=== PATIENT | female | born 1970 | race Caucasian/White ===

== ENCOUNTER 2018-04-12 14:02 | Emergency (ER) | payer BC ==
--- NOTE | 2018-04-12 14:07 | ED Physician Documentation ---
General Adult - HISTORIAN Historian: patient - HPI Stated Complaint: "I just fell blah" Chief Complaint: General Adult Onset: days ago (1) Timing: still present Severity: mild Further Comments: yes (She reports that she has some ear popping. She denies any fever. Feels on and off nausea. No vomiting. She has no rash) Last known Well Code/Unknown Code: Unknown - ROS CONST: no problems CVS/RESP: denies: shortness of breath, cough GI/: nausea. denies: vomiting MS/SKIN/LYMPH: denies: rash NEURO/PSYCH: dizziness. denies: headache, fainting - PAST HX Past History: none Other History: none Surgeries/Procedures: none Immunizations: UTD Allergies/Adverse Reactions: Allergies Allergy/AdvReac Type Severity Reaction Status Date / Time penicillin G Allergy Verified 06/27/16 16:42 Home Medications: Ambulatory Orders Medication Instructions Recorded Cephalexin [Keflex] 500 mg PO TID #21 capsule 06/24/16 - SOCIAL HX Smoking History: non-smoker Alcohol Use: none Drug Use: none - FAMILY HX Family History: No - VITAL SIGNS Vital Signs: Vital Signs Temp Pulse Resp BP Pulse Ox 132/68 06/27/16 17:36 - REVIEWED ASSESSMENTS Nursing Assessment Reviewed: Yes Vitals Reviewed: Yes General Adult Physical Exam - PHYSICAL EXAM GENERAL APPEARANCE: no distress EENT: eye inspection normal, ENT inspection normal, pharynx normal, no signs of dehydration, ALEXA, TM's nml NECK: normal inspection RESPIRATORY: no resp distress, chest non-tender, breath sounds normal CVS: reg rate & rhythm, heart sounds normal, equal pulses, no murmur ABDOMEN: soft, normal bowel sounds, no distension, non-tender SKIN: warm/dry EXTREMITIES: non-tender, normal range of motion, no evidence of injury, no edema NEURO: oriented X3 Discharge Clincal Impression: Nausea Referrals: Ange Farris MD [STAFF PHYSICIAN] - 2 Days Comments: 1. Increase fluids 2. OTC allergy med 3. Change position slowly 4. See PCP in 2-4 days if no improvement 5. Return to ER for any concerns Condition: Stable Disposition: 01 HOME, SELF-CARE Decision to Admit: NO Date of Decison to Admit: 04/12/18 Decision Time: 14:20
[2018-04-12 14:24] VITALS: BP 143/67
== END 2018-04-12 14:25 | disposition home or self-care (01) ==
LOC: ED 14:02
DX: R11.0 Nausea (principal)

== ENCOUNTER 2018-08-15 13:35 | Emergency (ER) | payer BC ==
--- NOTE | 2018-08-15 13:45 | ED Physician Documentation ---
Lower Extremity Problem - HISTORIAN Historian: patient - HPI Stated Complaint: left knee pain Chief Complaint: Lower Extremity Problem Additional Information: Patient presents to ED with left knee pain. Patient states she was shoveling snow yesterday when she felt a pop in her knee while doing a twisting motion. Since that time she states the knee has been painful. She has not taking anything for the pain nor applied ice/heat. Location of Injury: L knee Onset: days ago (1) Timing: still present Duration: constant Where: home Severity: mild Quality: pain, tenderness Exacerbated By: movement Relieved By: rest Associated Symptoms: denies: chest pain, shortness of breath, rapid heart rate - ROS CONST: no problems MS/SKIN/LYMPH: none CVS/RESP: none GI/: denies: vomiting, nausea NERUO/PSYCH: denies: headache - PAST HX Past History: none PE Risk Factors: none Surgeries/Procedures: none Allergies/Adverse Reactions: Allergies Allergy/AdvReac Type Severity Reaction Status Date / Time penicillin G Allergy Verified 08/15/18 13:57 Home Medications: Ambulatory Orders Medication Instructions Recorded NK 04/12/18 - SOCIAL HX Smoking History: non-smoker Alcohol Use: none Drug Use: none - FAMILY HX Family History: none - VITAL SIGNS Vital Signs: Vital Signs Temp Pulse Resp BP Pulse Ox 98.1 F 84 16 148/88 99 08/15/18 13:46 08/15/18 13:46 08/15/18 13:46 08/15/18 13:46 08/15/18 13:46 - REVIEWED ASSESSMENTS Nursing Assessment Reviewed: Yes Vitals Reviewed: Yes ED Results Lab/Radiology - Radiology Radiology Impressions: Left knee 3 views Date of Exam: August 15, 2018. History: LEFT KNEE PAIN AFTER SLIPPING IN SNOW YESTERDAY AND HEARING A POP. NO PREVIOUS INJURIES OR SURGERIES. PATIENT SHIELDED FOR EXAM. (Hx) / ITS.REASON left knee pain (DICOM Hx) / ITS.REASON left knee pain (Pt comments) Findings: No acute fracture or dislocation is identified. There is diffuse soft tissue swelling. The patella is in appropriate relationship with the distal femur. The proximal left tibia and fibula are intact. Impression: No acute osseous abnormality. Electronically signed on Aug 15, 2018 2:16:18 PM CONSTRUCTION PERSON by: Fredo Madden - Orders Orders: ED Orders Category Date Time Status KNEE 3 VIEWS [RAD] Stat Exams 08/15/18 Taken Lower Extremity Problem - EXAM General Appearance: no distress Hips: bilateral hip: non-tender, normal range of motion Legs: bilateral: non-tender, normal range of motion Knees: left: normal range of motion, no evidence of injury, soft tissue tenderness Ankle: left: normal inspection, normal range of motion Foot: left foot: non-tender, normal inspection Neuro/Tendon: normal sensation, normal motor functions, normal tendon functions EENT: ALEXA RESPIRATORY: chest non-tender, breath sounds normal CVS: reg rate & rhythm, heart sounds normal JOINT: joints nml, Nml gait/weight bearing VASCULAR: no vascular compromise, pulses full/equal NEURO/PSYCH: oriented X3, motor nml SKIN: warm/dry BACK: normal inspection Discharge Clincal Impression: Strain of left knee Qualifiers: Encounter type: initial encounter Qualified Code(s): S86.912A - Strain of unspecified muscle(s) and tendon(s) at lower leg level, left leg, initial encounter Referrals: Primary Doctor,No [Primary Care Provider] - 2 Days Additional Instructions: 1. Tylenol and/or Ibuprofen as needed for pain. These medications may be taken together at the same time for better pain control. 2. Apply ice to affected area as needed for swelling/pain 3. Keep left leg elevated when resting 4. Follow up with PCP within 1 week 5. Return to ED for new or worsening symptoms. Condition: Stable Disposition: HOME, SELF-CARE Decision to Admit: NO Date of Decison to Admit: 08/15/18 Decision Time: 14:13
[2018-08-15 13:55] VITALS: BP 148/88
--- NOTE | 2018-08-15 15:18 | Diagnostic Imaging Report ---
YANY VALDEZ [facility] [address] [facility] [address] [place], [place]. [address] Report Submission Date: Aug 15, 2018 2:16:[address] [address] [employer] Patient Study Name: SILVANO MELGAR Date: Aug 15, 2018 1:46:[address] [employer] Modality Type: DX Gender: F Description: LOWER EXTREMITY : 70 Institution: [facility] Physician: YANY VALDEZ Left knee 3 views Date of Exam: August 15, 2018. History: LEFT KNEE PAIN AFTER SLIPPING IN SNOW YESTERDAY AND HEARING A POP. NO PREVIOUS INJURIES OR SURGERIES. PATIENT SHIELDED FOR EXAM. (Hx) / ITS.REASON left knee pain (DICOM Hx) / ITS.REASON left knee pain (Pt comments) Findings: No acute fracture or dislocation is identified. There is diffuse soft tissue swelling. The patella is in appropriate relationship with the distal femur. The proximal left tibia and fibula are intact. Impression: No acute osseous abnormality. Electronically signed on Aug 15, 2018 2:16:18 [address] [employer] by: Fredo HATCH
== END 2018-08-15 14:20 | disposition home or self-care (01) ==
LOC: ED 13:35
DX: S86.912A Strain of unspecified muscle(s) and tendon(s) at lower leg level, left leg, initial encounter (principal); X58.XXXA Exposure to other specified factors, initial encounter; Y93.H1 Activity, digging, shoveling and raking; Y92.009 Unspecified place in unspecified non-institutional (private) residence as the place of occurrence of the external cause
CPT/HCPCS: 73562; 99282; 99283

== ENCOUNTER 2019-01-29 21:40 | Emergency (ER) | payer BC ==
[2019-01-29] MEDS ORDERED: methylPREDNISolone SOD SUCC 125 MG/2 ML VIAL IM ONE (22:09)
--- NOTE | 2019-01-29 22:14 | ED Physician Documentation ---
Upper Extremity Problem - HISTORIAN Historian: patient - HPI Chief Complaint: Upper Extremity Problem (Right Hand) Additional Information: Patient is a 48-year-old female who presents to the ER with c/o right hand swelling. Patient states that she had shoulder surgery on 01/11/19 and thinks that she is having a reaction to the Tramadol. Hand looks like she has a beginning cellulitis with mild swelling and redness. Patient is adamant that it is an allergic reaction because she googled her symptoms. Patient has no other symptoms of a reaction. She is very argumentive. Finally asked why she was here if it was just a "reaction" because treatment is "benadryl"- she stated that google said to see a doctor. I once again explained that it was not a reaction and a beginning cellulitis. Patient wants to be treated for reaction. Location: R hand Onset: days ago (2) Timing: still present, better Duration: intermittent episodes Recent Injury: No (surgery on 01/11/19) Where: home Severity: mild Associated Symptoms: denies: fever, chills, shortness of breath Exacerbated By: nothing Relieved By: nothing - ROS CONST: no problems EYES/ENT: none CVS/RESP: none GI/: none NEURO/PSYCH: denies: headache - PAST HX Past History: none Other History: none Surgeries/Procedures: other (shoulder) Immunizations: UTD Allergies/Adverse Reactions: Allergies Allergy/AdvReac Type Severity Reaction Status Date / Time penicillin G Allergy Intermediate Verified 01/29/19 22:54 Home Medications: Ambulatory Orders Medication Instructions Recorded NK 04/12/18 - SOCIAL HX Smoking History: less than 1 pack/day Alcohol Use: none Drug Use: none - FAMILY HX Family History: none - VITAL SIGNS Vital Signs: Vital Signs Temp Pulse Resp BP Pulse Ox 98.8 F 77 18 133/83 98 01/29/19 22:53 01/29/19 22:53 01/29/19 22:53 01/29/19 22:53 01/29/19 22:53 ED Results Lab/Radiology - Orders Orders: ED Orders Category Date Time Status methylPREDNISolone SOD SUCC [SOLU-Medrol] Med 01/29/19 22:09 Discontinued 125 mg IM NOW ONE Upper Extremity Problem - EXAM General Appearance: no acute distress, alert Skin: warm/dry, normal color Shoulder Exam: swelling (Patient has right arm in a sling) Elbow/Forearm Exam: normal inspection Wrist Exam: normal inspection Hand Exam: soft tissue tenderness, swelling Neuro/Tendon: normal sensation, normal motor functions, normal tendon functions EENT: eye inspection normal, ENT inspection normal, ALEXA CVS: heart sounds normal Vascular: no vascular compromise Peripheral: sensation nml, motor nml Central: oriented X3, CN's nml as tested, motor nml, sensation nml Respiratory: breath sounds nml Abdomen: non-tender Discharge Clincal Impression: Cellulitis of hand Referrals: Primary Doctor,No [Primary Care Provider] - 2 Days Additional Instructions: Patient has what appears to be a beginning cellulitis Patient strongly believes this is a reaction to the tramadol and would like to be treated in this direction Take Benadryl 25mg by mouth every 6 hours as needed for itching Start Medrol Dose Pack tomorrow If redness or swelling increase there is an antibiotic sent to the pharmacy that I strongly suggest you start. Please follow up with PCP next week to re-evaluate hand. Condition: Good Disposition: 01 HOME, SELF-CARE Decision to Admit: NO Decision Time: 22:54
[2019-01-29 22:52] VITALS: BP 133/83
== END 2019-01-29 22:44 | disposition home or self-care (01) ==
LOC: ED 21:40
DX: L03.113 Cellulitis of right upper limb (principal)
CPT/HCPCS: 96372; 99283; 99284; J2930